=== PATIENT | female | born 1990 | race Caucasian/White ===

== ENCOUNTER 2018-12-05 17:13 | Emergency (ER) | payer OTHER ==
[~2018-12-05] VITALS: Ht 162.6 cm; Wt 93.6 kg
[2018-12-05] MEDS ORDERED: Robaxin500 MG PO (17:57)
== END 2018-12-05 18:26 | disposition home or self-care (01) ==
LOC: ER 17:13
DX: M54.5 Low back pain (principal); Z79.899 Other long term (current) drug therapy
CPT/HCPCS: 96372; 99283-25; J1885